=== PATIENT | female | born 1990 | race Caucasian/White ===

== ENCOUNTER 2023-08-23 10:01 | Outpatient (OUT) | payer OTHER, SELFPAY ==
--- NOTE | 2023-08-23 11:05 | CA_ITS ---
Patient Name: VIKKI TAYLOR MR#: [id number] : 1990 Exam Date: 08/23/2023 Ordering Doctor: LANA HEAD ECHOCARDIOGRAM REPORT PROCEDURE: CA ECHO DOPPLER COMPLETE INDICATIONS: Congenital heart block, Unspecified atrial flutter COMPARISON: None. DESCRIPTION: COMPLETE ECHOCARDIOGRAM Real-time transthoracic echocardiography with 2D, M-mode, spectral and color flow Doppler performed. QUALITY: Technical quality was adequate. LEFT VENTRICLE: Mild dilatation. Normal left ventricular wall thickness. LV EF: Global left ventricular systolic function is difficult to assess but appears mildly reduced; visually estimated ejection fraction is 45 to 50%. Unable to assess regional wall motion abnormalities. DIASTOLIC: Unable to assess diastolic function. ATRIAL SEPTUM: Inadequately seen. LEFT ATRIUM: Mild dilatation. RIGHT ATRIUM: Mild dilatation. Pacer wire present. RIGHT VENTRICLE: Normal chamber size. Normal right ventricular systolic function. Pacer wire present. TRICUSPID VALVE: Normal mobility and thickness. No stenosis with mild regurgitation. No evidence of pulmonary hypertension. RVSP 34mmHg MITRAL VALVE: Normal mobility and thickness. No evidence of mitral valve stenosis. There is no mitral annular calcification. Trivial mitral regurgitation. AORTIC VALVE: Normal trileaflet appearance. Normal leaflet mobility. No aortic stenosis. No aortic regurgitation. AORTIC ROOT: Normal diameter and appearance. PULMONIC VALVE: Normal thickness and mobility. No stenosis. Mild regurgitation. PERICARDIUM: Anterior free space; trivial effusion versus fat pad. IVC: Collapses with inspirations. Normal size. CONCLUSION: 1. Global left ventricular systolic function is difficult to assess but appears mildly reduced; visually estimated ejection fraction is 45 to 50% 2. Normal right ventricular size and systolic function 3. Biatrial enlargement 4. Unable to assess diastolic function 5. Mild tricuspid regurgitation 6. Mild pulmonic regurgitation 7. Anterior free space; trivial effusion versus fat pad Adult Echocardiography Procedure Report Left Ventricle LVEDD (3.7 - 5.6 cm): 5.59 cm LVESD (2.2 - 4.0 cm): 4.08 cm LVIVS thickness (0.6 - 1.2 cm): 0.92 cm LVPW thickness (0.5 - 1.0 cm): 0.90 cm e': 0.07 m/s E - e': 11.63 LVOT Max Gradient: 1.34 mm[Hg] LVOT Area (cm2): 0.58 m/s Peak Velocity (LVOT): 0.58 m/s Mean Velocity (LVOT): 0.39 m/s LVOT Diameter 1.97 cm Left Ventricular Ejection Fraction: 46.40 % Left Atrium LA Volume Index (2D A2C): 40.67 ml/m2 Left Atrium Systolic Dimension: 2.81 cm Mitral Valve MV E to A Ratio: 3.14 Mitral Valve A-Wave Peak Velocity: 0.26 m/s Mitral Valve E-Wave Peak Velocity: 0.83 m/s Right Ventricle RV Internal Diastolic Dimension: 3.91 cm Aorta AO Root Diam: 3.22 cm Ascending Ao Diam: 2.87 cm Aortic Valve AoV Area (Peak Fabrizio): 1.62 cm2, 1.62 cm2 AoV Area (VTI): 1.53 cm2, 1.53 cm2 Peak Velocity(Antegrade Flow): 1.09 m/s Peak Gradient(Antegrade Flow): 4.72 mm[Hg] Mean Velocity(Antegrade Flow): 0.71 m/s Mean Gradient(Antegrade Flow): 2.43 mm[Hg] Velocity Time Integral: 23.34 cm Tricuspid Valve Peak Velocity (Regurgitant Flow): 1.70 m/s, 2.67 m/s, 2.77 m/s Pulmonic Valve Mean Gradient: 1.47 mm[Hg], 1.65 mm[Hg] Mean Velocity: 0.58 m/s, 0.59 m/s Peak Velocity: 0.85 m/s Peak Gradient: 2.34 mm[Hg], 3.44 mm[Hg] Right Atrium Right Atrium Systolic Pressure: 66.47 ml, 66.47 ml Dictated by: Dalton Plata M.D. on 08/23/2023 at 14:30 Approved by: Dalton Plata M.D. on 08/23/2023 at 14:36
== END 2023-08-23 10:02 | disposition home or self-care (01) ==
LOC: CARD 10:05
PROVIDERS: PCP Family Medicine; Visit Provider Internal Medicine Cardiovascular Disease
DX: Q24.6 Congenital heart block (principal); I48.92 Unspecified atrial flutter
CPT/HCPCS: 93306; 93356